=== PATIENT | female | born 1970 | race Hispanic/Latino ===

== ENCOUNTER → 2022-01-01 | Outpatient (CLI) | payer BC, OTHER | END | disposition home or self-care (01) | LOC: RAH 12:27 | PROVIDERS: ATTEND Internal Medicine | DX: Z12.31 Encounter for screening mammogram for malignant neoplasm of breast (principal) | CPT/HCPCS: 77067 ==

== ENCOUNTER 2022-04-02 05:58 | Day surgery (SDC) | payer BC, OTHER ==
[2022-04-01 15:00] VITALS: BP 131/76
[~2022-04-02] VITALS: Ht 160 cm; Wt 94.0 kg
[2022-04-02] VITALS (15 sets, daily range): BP systolic 109–123; BP diastolic 60–76
[2022-04-02] MEDS ORDERED: CEFAZOLIN SODIUM 1 GM VIAL ONE (06:34)
[2022-04-02] MEDS ORDERED: LACTATED RINGERS 1000ML 1,000 ML IV ONE (06:34)
[2022-04-02] MEDS: CEFAZOLIN SODIUM 1 GM VIAL IVP ONE ×2 (06:51→09:00)
[2022-04-02] MEDS ORDERED: MIDAZOLAM HCL 1 MG/ML 2ML VIAL ONE (08:35)
[2022-04-02] MEDS ORDERED: FENTANYL CITRATE PF 50 MCG/1 ML 2ML VIAL ONE ×2 (08:35→09:53)
[2022-04-02] MEDS ORDERED: LIDOCAINE HCL MDV 0.5% 50ML VIAL IJ ONE (08:37)
[2022-04-02] MEDS ORDERED: KETAMINE 50MG/ML SYRINGE 50 MG/ML DISP.SYRIN IV ONE (08:37)
[2022-04-02] MEDS ORDERED: PROPOFOL 10 MG/ML 20ML VIAL IV ONE ×2 (08:38→09:35)
[2022-04-02] MEDS ORDERED: METOCLOPRAMIDE 10 MG/2 ML VIAL ONE (09:32)
[2022-04-02] MEDS ORDERED: KETOROLAC 30MG VIAL (30MG/ML) ONE (10:10)
[2022-04-02] MEDS ORDERED: MEPERIDINE-PF 25 MG/ML SYG ONE ×2 (10:15→10:24)
== END 2022-04-02 11:40 | disposition home or self-care (01) ==
LOC: DAH 05:58
PROVIDERS: ATTEND Neurological Surgery
DX: G56.01 Carpal tunnel syndrome, right upper limb (principal); E66.01 Morbid (severe) obesity due to excess calories; Z79.01 Long term (current) use of anticoagulants; Z98.891 History of uterine scar from previous surgery; Z79.899 Other long term (current) drug therapy
CPT/HCPCS: 64721; 87635; A4215; A4221; A4222; A4223; A4663; A6260; C9803; J0690; J1885; J2175 ×2; J2250; J2704 ×2; J2765; J3010 ×2; J3490 ×2; J7120

== ENCOUNTER → 2023-04-25 | Outpatient (CLI) | payer OTHER | END | disposition home or self-care (01) | LOC: RAH 08:31 | PROVIDERS: ATTEND Internal Medicine | DX: K76.0 Fatty (change of) liver, not elsewhere classified (principal); R94.5 Abnormal results of liver function studies | CPT/HCPCS: 76705 ==

== ENCOUNTER → 2024-04-23 | Outpatient (CLI) | payer BC, OTHER | END | disposition home or self-care (01) | LOC: RAH 09:25 | PROVIDERS: ATTEND Internal Medicine | DX: Z12.31 Encounter for screening mammogram for malignant neoplasm of breast (principal) | CPT/HCPCS: 77067 ==

== ENCOUNTER → 2025-05-18 | Outpatient (CLI) | payer BC, OTHER | END | disposition home or self-care (01) | LOC: RAH 14:38 | PROVIDERS: ATTEND Internal Medicine | DX: Z12.31 Encounter for screening mammogram for malignant neoplasm of breast (principal) | CPT/HCPCS: 77067 ==